=== PATIENT | female | born 2000 | race Two or more races ===

== ENCOUNTER 2024-08-12 06:30 | Emergency (ER) | payer OTHER ==
[~2024-08-12] VITALS: Ht 149.9 cm; Wt 54.5 kg
[2024-08-12 06:33] VITALS: TEMP 98.3
[2024-08-12 07:07] LABS: BASOPHILS % (AUTO) 0.5 % (0.0-2.0); EOSINOPHILS % (AUTO) 1.3 % (1.0-6.0); HEMATOCRIT 41.3 % (36-46); LYMPHOCYTES # (AUTO) 1.6 K/uL (1.0-4.8); LYMPHOCYTES % (AUTO) 14.5 % (22.0-44.0); MEAN CORPUSCULAR HEMOGLOBIN 30.5 pg (26.0-34.0); MEAN CORPUSCULAR HGB CONC 33.9 G/dL (31.0-37.0); MEAN CORPUSCULAR VOLUME 90 fL (80-100); MONOCYTES # (AUTO) 0.7 K/uL (0.1-1.0); MONOCYTES % (AUTO) 6.6 % (2.0-9.0); NEUTROPHILS # (AUTO) 8.4 K/uL (1.8-7.7); NEUTROPHILS % (AUTO) 77.1 % (40.0-70.0); PLATELET COUNT (AUTO) 284 K/uL (150-450); RED BLOOD CELL COUNT(AUTO) 4.59 MIL/uL (4.00-5.20); RED CELL DISTRIBUTION WIDTH 12.1 % (11.5-14.5); WHITE BLOOD COUNT (AUTO) 10.9 K/uL (4.5-11.0)
[2024-08-12 08:35] LABS: APPEARANCE,URINE HAZY (CLEAR); BILIRUBIN,URINE NEGATIVE (NEGATIVE); COLOR,URINE YELLOW (YELLOW); GLUCOSE, URINE (UA) NEGATIVE (NEGATIVE); KETONES,URINE NEGATIVE (NEGATIVE); LEUKOCYTE ESTERASE ,URINE LARGE (NEGATIVE); NITRATE,URINE NEGATIVE (NEGATIVE); OCCULT BLOOD,URINE LARGE (NEGATIVE); PROTEIN,URINE 300-600,SEE CONFIRM mg/dL (NEGATIVE); SPECIFIC GRAVITIY, URINE 1.022 (1.003-1.030); UROBILINOGEN,URINE <=1.0 mg/dL (<=1.0)
[2024-08-12 08:47] LABS: RBC,URINE Full Field /HPF (0-2); SULFOSALICYLIC ACID,URINE 3+ (Negative)
[2024-08-12 08:48] LABS: BACTERIA,URINE Many /HPF (None Seen); WBC,URINE 51-100 /HPF (0-5)
[2024-08-12] MEDS ORDERED: CEPH-558 PO (09:10)
[2024-08-12] MEDS: CefTRIAXone 1 GM/DEXTROSE 50 ML IV ONE (09:12)
[2024-08-12 09:23] VITALS: BP 110/68; PULSE 72; RESP 16; O2SAT 99
[2024-08-14] MEDS ORDERED: LEVO750T68 PO (16:23)
== END 2024-08-12 10:06 | disposition home or self-care (01) ==
LOC: EMS 06:31
DX: N39.0 Urinary tract infection, site not specified (principal); J45.909 Unspecified asthma, uncomplicated
CPT/HCPCS: 99284; 96365; 81001; 84702; 85025; 87077; 87086; 36415; J0696; 81002; 87186